=== PATIENT | female | born 1975 | race American Indian/Alaskan Native ===

== ENCOUNTER 2017-06-13 15:11 | Emergency (ER) | payer BC ==
--- NOTE | 2017-06-13 19:15 | Emergency Department Report ---
- General Chief complaint: Skin/Abscess/Foreign Body Stated complaint: LEFT LEG PAIN Time Seen by Provider: 06/13/17 19:10 Source: patient Mode of arrival: Ambulatory Limitations: No Limitations - History of Present Illness Initial comments: 42-year-old female past medical history presents with complaint of irritation to left lower extremity patient states she has a patch of red skin located behind her left upper calf region. Denies any fevers or chills. Denies any calf pain. States that area is slightly warm to touch. Patient is pointing towards area on her leg. There is a well-demarcated erythematous patch approximately 5-6 cm in width. Visible abscess head. Patient denies any direct trauma. States she is concerned she may have been bitten by an insect at either home or work. MD complaint: insect bite/sting, abscess/boil Onset/Timin -: days(s) Tetanus Up to Date: yes Location: LLE Severity: moderate Severity scale (0 -10): 3 Quality: aching Consistency: intermittent Context: none - Related Data Home Medications Medication Instructions Recorded Confirmed Last Taken Aspirin [Aspirin TAB] 81 mg PO ONCE 04/27/14 04/27/14 04/27/14 1 Carvedilol [Coreg] 25 mg PO BID 04/27/14 04/27/14 04/27/14 1 Previous Rx's Medication Instructions Recorded Last Taken Type HYDROcodone/APAP 7.5-325 [[place] 1 each PO Q6HR PRN #20 tablet 04/27/14 Unknown Rx 7.5-325 mg TAB] Methocarbamol [Robaxin] 750 mg PO Q8H PRN #21 tablet 04/27/14 Unknown Rx Cephalexin [Keflex] 500 mg PO Q12HR #14 cap 06/13/17 Unknown Rx Ibuprofen [Motrin] 800 mg PO Q8HR PRN #25 tablet 06/13/17 Unknown Rx Sulfamethoxazole/Trimethoprim 1 each PO BID #14 tablet 06/13/17 Unknown Rx [Bactrim DS TAB] Allergies Allergy/AdvReac Type Severity Reaction Status Date / Time No Known Allergies Allergy Verified 04/27/14 06:33 Abscess Boil HPI - HPI Chief Complaint: Skin/Abscess/Foreign Body Stated Complaint: LEFT LEG PAIN Time Seen by Provider: 06/13/17 19:10 Home Medications: Home Medications Medication Instructions Recorded Confirmed Last Taken Aspirin [Aspirin TAB] 81 mg PO ONCE 04/27/14 04/27/14 04/27/14 1 Carvedilol [Coreg] 25 mg PO BID 04/27/14 04/27/14 04/27/14 1 Previous Rx's Medication Instructions Recorded Last Taken Type HYDROcodone/APAP 7.5-325 [[place] 1 each PO Q6HR PRN #20 tablet 04/27/14 Unknown Rx 7.5-325 mg TAB] Methocarbamol [Robaxin] 750 mg PO Q8H PRN #21 tablet 04/27/14 Unknown Rx Cephalexin [Keflex] 500 mg PO Q12HR #14 cap 06/13/17 Unknown Rx Ibuprofen [Motrin] 800 mg PO Q8HR PRN #25 tablet 06/13/17 Unknown Rx Sulfamethoxazole/Trimethoprim 1 each PO BID #14 tablet 06/13/17 Unknown Rx [Bactrim DS TAB] Allergies/Adverse Reactions: Allergies Allergy/AdvReac Type Severity Reaction Status Date / Time No Known Allergies Allergy Verified 04/27/14 06:33 ED Review of Systems ROS: Stated complaint: LEFT LEG PAIN Other details as noted in HPI Constitutional: denies: chills, fever Eyes: denies: eye pain, eye discharge, vision change ENT: denies: ear pain, throat pain Respiratory: denies: cough, shortness of breath, wheezing Cardiovascular: denies: chest pain, palpitations Endocrine: no symptoms reported Gastrointestinal: denies: abdominal pain, nausea, diarrhea Genitourinary: denies: urgency, dysuria, discharge Musculoskeletal: denies: back pain, joint swelling, arthralgia Skin: denies: rash, lesions Neurological: denies: headache, weakness, paresthesias Psychiatric: denies: anxiety, depression Hematological/Lymphatic: denies: easy bleeding, easy bruising ED Past Medical Hx - Past Medical History Previous Medical History?: No Hx Hypertension: Yes Additional medical history: heart disease - Surgical History Additional Surgical History: heart by pass/ no stents - Social History Smoking Status: Never Smoker Substance Use Type: None - Medications Home Medications: Home Medications Medication Instructions Recorded Confirmed Last Taken Type Aspirin [Aspirin TAB] 81 mg PO ONCE 04/27/14 04/27/14 04/27/14 History 1 Carvedilol [Coreg] 25 mg PO BID 04/27/14 04/27/14 04/27/14 History 1 HYDROcodone/APAP 7.5-325 [[place] 1 each PO Q6HR PRN #20 tablet 04/27/14 Unknown Rx 7.5-325 mg TAB] Methocarbamol [Robaxin] 750 mg PO Q8H PRN #21 tablet 04/27/14 Unknown Rx Cephalexin [Keflex] 500 mg PO Q12HR #14 cap 06/13/17 Unknown Rx Ibuprofen [Motrin] 800 mg PO Q8HR PRN #25 tablet 06/13/17 Unknown Rx Sulfamethoxazole/Trimethoprim 1 each PO BID #14 tablet 06/13/17 Unknown Rx [Bactrim DS TAB] ED Physical Exam - General Limitations: No Limitations General appearance: alert, in no apparent distress - Head Head exam: Present: atraumatic, normocephalic - Eye Eye exam: Present: normal appearance, PERRL, EOMI - ENT ENT exam: Present: mucous membranes moist - Neck Neck exam: Present: normal inspection, full ROM - Respiratory Respiratory exam: Present: normal lung sounds bilaterally. Absent: respiratory distress - Cardiovascular Cardiovascular Exam: Present: regular rate, normal rhythm. Absent: systolic murmur, diastolic murmur, rubs, gallop - GI/Abdominal GI/Abdominal exam: Present: soft, normal bowel sounds - Extremities Exam Extremities exam: Present: normal inspection - Expanded Lower Extremity Exam Left Hip exam: Present: normal inspection, full ROM Upper Leg exam: Present: normal inspection, full ROM Knee exam: Present: normal inspection, full ROM Lower Leg exam: Present: erythema Ankle exam: Present: normal inspection, full ROM Foot/Toe exam: Present: normal inspection, full ROM Neuro vascular tendon exam: Present: no vascular compromise (distal dosralis pedis and posteriro tibial pulses) Gait: Positive: observed and normal 1 - patch of erthema w/ central abscess about 6-7cm in diameter - Back Exam Back exam: Present: normal inspection - Neurological Exam Neurological exam: Present: alert, oriented X3, CN II-XII intact, normal gait - Psychiatric Psychiatric exam: Present: normal affect, normal mood - Skin Skin exam: Present: warm, dry, intact, normal color. Absent: rash ED Course Vital Signs 06/13/17 06/13/17 15:29 19:50 Temperature 98.5 F Pulse Rate 118 H 60 Respiratory 16 20 Rate Blood Pressure 196/94 Blood Pressure 196/114 [Right] O2 Sat by Pulse 100 100 Oximetry - I & D Left Posterior Calf Type of Procedure: Simple Site: left upper calf region Blade Size: 11 I & D Procedure: betadine prep, sterile drapes applied, sterile dressing applied Progress: Area anesthetized with lidocaine, good anesthesia achieved, 1 stab incision made slight amount of purulent drainage, procedure tolerated well minimal bleeding area covered with gauze after ED Medical Decision Making - Medical Decision Making A/P: Left lower extremity cellulitis, hypertension 1-Bactrim and Keflex twice a day 7 days 2-Motrin when necessary 3- return the to ED if cellulitis runs past the marked borders 4- patient signed out AGAINST MEDICAL ADVICE. Patient's blood pressure was over 110 diastolic and nearly 200 systolic. Patient has no chest pain no headache no dizziness no nausea no vomiting no abdominal pain no blurry vision however her blood pressure is still significantly high despite use of her hypertension medicine. I advised patient that because of her elevation in blood pressure I would have to do basic labs give her an agent to try to reduce blood pressure slightly and observe her for some more time. Patient stated she could not wait any longer and had to leave. I explained to patient that she is at risk for heart attack stroke and permanent disability or without management of hypertension. Patient stated she understood these risks but still had to leave for personal reasons. Patient signed out AGAINST MEDICAL ADVICE, yarn texture machine operator Aljeandro Calvin witnessed AGAINST MEDICAL ADVICE form. Critical care attestation.: If time is entered above; I have spent that time in minutes in the direct care of this critically ill patient, excluding procedure time. ED Disposition Clinical Impression: Left leg cellulitis, Left against medical advice Hypertension Qualifiers: Hypertension type: unspecified Qualified Code(s): I10 - Essential (primary) hypertension Disposition: LEFT AGAINST MED ADVICE Is pt being admited?: No Does the pt Need Aspirin: No Condition: Stable Instructions: Cellulitis (ED), Abscess Incision and Drainage (ED), Abscess (ED) , Hypertension (ED), Against Medical Advice (ED) Prescriptions: Cephalexin [Keflex] 500 mg PO Q12HR #14 cap Ibuprofen [Motrin] 800 mg PO Q8HR PRN #25 tablet PRN Reason: Pain Sulfamethoxazole/Trimethoprim [Bactrim DS TAB] 1 each PO BID #14 tablet Referrals: RADHA KARIMI MD [Staff Physician] - 3-[address] [facility] [Outside] - 3-5 Days Forms: AMA Form, Work/School Release Form(ED) Time of Disposition: 19:20
[2017-06-13 20:52] VITALS: BP 196/114
== END 2017-06-13 19:55 | disposition left against medical advice (07) ==
LOC: ED 15:11
DX: L03.116 Cellulitis of left lower limb (principal); I10 Essential (primary) hypertension; Z79.82 Long term (current) use of aspirin
CPT/HCPCS: 99282

== ENCOUNTER 2019-05-31 10:48 | Emergency (ER) | payer BC ==
[2019-05-31 10:57] VITALS: BP 154/78
--- NOTE | 2019-05-31 11:36 | Emergency Department Report ---
ED ENT HPI - General Chief complaint: Upper Respiratory Infection Stated complaint: BACK ACHE/SORE THROAT/FEVER Time Seen by Provider: 05/31/19 11:31 Source: patient Mode of arrival: Ambulatory Limitations: No Limitations - History of Present Illness Initial comments: Mrs. Wood is a 44-year-old female who presents with fever chills body aches and sore throat for 2 days. [id number] symptoms. No nasal congestion no cough. No shortness of breath. There was a sick contact at work. MD complaint: sore throat -: Gradual, days(s) (2) Location: throat Severity: mild, moderate Quality: aching Consistency: constant Improves with: none Worsens with: none, swallowing Associated Symptoms: fever, pain with swallowing, sore throat - Related Data Home Medications Medication Instructions Recorded Confirmed Last Taken Aspirin 81 mg PO ONCE 04/27/14 04/27/14 04/27/14 1 Carvedilol [Coreg] 25 mg PO BID 04/27/14 04/27/14 04/27/14 1 Previous Rx's Medication Instructions Recorded Last Taken Type HYDROcodone/APAP 7.5-325 [[place] 1 each PO Q6HR PRN #20 tablet 04/27/14 Unknown Rx 7.5-325 mg TAB] methOCARBAMOL [Robaxin] 750 mg PO Q8H PRN #21 tablet 04/27/14 Unknown Rx Ibuprofen [Motrin] 800 mg PO Q8HR PRN #25 tablet 06/13/17 Unknown Rx Sulfamethoxazole/Trimethoprim 1 each PO BID #14 tablet 06/13/17 Unknown Rx [Bactrim DS TAB] cephALEXin [Keflex] 500 mg PO Q12HR #14 cap 06/13/17 Unknown Rx Ibuprofen [Motrin 800 MG tab] 800 mg PO Q8HR PRN #15 tablet 05/31/19 Unknown Rx Allergies Allergy/AdvReac Type Severity Reaction Status Date / Time No Known Allergies Allergy Verified 04/27/14 06:33 ED Dental HPI - General Chief complaint: Upper Respiratory Infection Stated complaint: BACK ACHE/SORE THROAT/FEVER Time Seen by Provider: 05/31/19 11:31 Source: patient Mode of arrival: Ambulatory Limitations: No Limitations - Related Data Home Medications Medication Instructions Recorded Confirmed Last Taken Aspirin 81 mg PO ONCE 04/27/14 04/27/14 04/27/14 1 Carvedilol [Coreg] 25 mg PO BID 04/27/14 04/27/14 04/27/14 1 Previous Rx's Medication Instructions Recorded Last Taken Type HYDROcodone/APAP 7.5-325 [[place] 1 each PO Q6HR PRN #20 tablet 04/27/14 Unknown Rx 7.5-325 mg TAB] methOCARBAMOL [Robaxin] 750 mg PO Q8H PRN #21 tablet 04/27/14 Unknown Rx Ibuprofen [Motrin] 800 mg PO Q8HR PRN #25 tablet 06/13/17 Unknown Rx Sulfamethoxazole/Trimethoprim 1 each PO BID #14 tablet 06/13/17 Unknown Rx [Bactrim DS TAB] cephALEXin [Keflex] 500 mg PO Q12HR #14 cap 06/13/17 Unknown Rx Ibuprofen [Motrin 800 MG tab] 800 mg PO Q8HR PRN #15 tablet 05/31/19 Unknown Rx Allergies Allergy/AdvReac Type Severity Reaction Status Date / Time No Known Allergies Allergy Verified 04/27/14 06:33 ED Review of Systems ROS: Stated complaint: BACK ACHE/SORE THROAT/FEVER Other details as noted in HPI Constitutional: fever, malaise ENT: throat pain Respiratory: denies: cough, shortness of breath Cardiovascular: denies: chest pain Gastrointestinal: denies: abdominal pain, nausea, vomiting ED Past Medical Hx - Past Medical History Hx Hypertension: Yes Additional medical history: heart disease - Surgical History Additional Surgical History: heart by pass/ no stents - Social History Smoking Status: Current Some Day Smoker Substance Use Type: None - Medications Home Medications: Home Medications Medication Instructions Recorded Confirmed Last Taken Type Aspirin 81 mg PO ONCE 04/27/14 04/27/14 04/27/14 History 1 Carvedilol [Coreg] 25 mg PO BID 04/27/14 04/27/14 04/27/14 History 1 HYDROcodone/APAP 7.5-325 [[place] 1 each PO Q6HR PRN #20 tablet 04/27/14 Unknown Rx 7.5-325 mg TAB] methOCARBAMOL [Robaxin] 750 mg PO Q8H PRN #21 tablet 04/27/14 Unknown Rx Ibuprofen [Motrin] 800 mg PO Q8HR PRN #25 tablet 06/13/17 Unknown Rx Sulfamethoxazole/Trimethoprim 1 each PO BID #14 tablet 06/13/17 Unknown Rx [Bactrim DS TAB] cephALEXin [Keflex] 500 mg PO Q12HR #14 cap 06/13/17 Unknown Rx Ibuprofen [Motrin 800 MG tab] 800 mg PO Q8HR PRN #15 tablet 05/31/19 Unknown Rx ED Physical Exam - General Limitations: No Limitations General appearance: alert, in no apparent distress, other (normal voice) - Eye Eye exam: Absent: scleral icterus, conjunctival injection - ENT ENT exam: Present: mucous membranes moist, other (exudative pharyngitis erythematous tonsils bilaterally) - Neck Neck exam: Present: normal inspection, full ROM - Respiratory Respiratory exam: Present: normal lung sounds bilaterally. Absent: respiratory distress, wheezes, rales, rhonchi - Neurological Exam Neurological exam: Present: alert, oriented X3 - Psychiatric Psychiatric exam: Present: normal affect, normal mood - Skin Skin exam: Present: warm, dry, intact, normal color ED Course Vital Signs 05/31/19 10:55 Temperature 100.0 F H Pulse Rate 72 Respiratory 18 Rate Blood Pressure 154/78 O2 Sat by Pulse 99 Oximetry ED Medical Decision Making - Medical Decision Making Mrs. Wood will be treated for streptococcal pharyngitis. dx'd by [facility] criteria Given Bicillin and Decadron as well as ibuprofen in the emergency department prescribed ibuprofen Critical care attestation.: If time is entered above; I have spent that time in minutes in the direct care of this critically ill patient, excluding procedure time. ED Disposition Clinical Impression: Streptococcal pharyngitis Disposition: DC-01 TO HOME OR SELFCARE Is pt being admited?: No Does the pt Need Aspirin: No Condition: Stable Instructions: Strep Throat (ED) Prescriptions: Ibuprofen [Motrin 800 MG tab] 800 mg PO Q8HR PRN #15 tablet PRN Reason: Pain , Severe (7-10) Forms: Work/School Release Form(ED)
[2019-05-31] MEDS ORDERED: IBUPROFEN PO ONE (11:37)
[2019-05-31] MEDS ORDERED: BICILLIN L-A IM ONE (11:37)
[2019-05-31] MEDS ORDERED: DECADRON IM ONE (11:37)
== END 2019-05-31 11:56 | disposition home or self-care (01) ==
LOC: ED 10:48
DX: J02.0 Streptococcal pharyngitis (principal); I10 Essential (primary) hypertension; F17.200 Nicotine dependence, unspecified, uncomplicated; Z79.82 Long term (current) use of aspirin; Z79.899 Other long term (current) drug therapy
CPT/HCPCS: 96372; 99282; J0561; J1100

== ENCOUNTER 2019-09-29 07:51 | Emergency (ER) | payer SELFPAY ==
[2019-09-29 07:57] VITALS: BP 127/67
--- NOTE | 2019-09-29 08:32 | Emergency Department Report ---
HPI - General Chief Complaint: Sore Throat Time Seen by Provider: 09/29/19 08:22 - HPI HPI: Room 42 The patient is a 44-year-old female presenting with chief complaint of sore throat. The patient states for the past 2 days she's had a sore throat and c [place]. Patient was so subjective fever. Patient also noticed her cough is nonproductive. The patient gives her pain score of 8/10. The patient states her daughter was diagnosed with strep throat last week. ED Past Medical Hx - Past Medical History Previous Medical History?: Yes Hx Hypertension: Yes Additional medical history: Coronary artery disease - Surgical History Past Surgical History?: Yes Hx Open Heart Surgery: Yes (CABG 2012) Additional Surgical History: heart by pass/ no stents - Family History Family history: no significant - Social History Smoking Status: Never Smoker Substance Use Type: None (denies illicit drug use) - Medications Home Medications: Home Medications Medication Instructions Recorded Confirmed Last Taken Type Aspirin 81 mg PO ONCE 04/27/14 04/27/14 04/27/14 History 1 HYDROcodone/APAP 7.5-325 [[place] 1 each PO Q6HR PRN #20 tablet 04/27/14 Unknown Rx 7.5-325 mg TAB] carvediloL [Coreg] 25 mg PO BID 04/27/14 04/27/14 04/27/14 History 1 methOCARBAMOL [Robaxin] 750 mg PO Q8H PRN #21 tablet 04/27/14 Unknown Rx Ibuprofen [Motrin] 800 mg PO Q8HR PRN #25 tablet 06/13/17 Unknown Rx Sulfamethoxazole/Trimethoprim 1 each PO BID #14 tablet 06/13/17 Unknown Rx [Bactrim DS TAB] cephALEXin [Keflex] 500 mg PO Q12HR #14 cap 06/13/17 Unknown Rx Ibuprofen [Motrin 800 MG tab] 800 mg PO Q8HR PRN #15 tablet 05/31/19 Unknown Rx Amoxicillin [Amoxicillin TAB] 875 mg PO BID #20 tablet 09/29/19 Unknown Rx HYDROcodone/APAP 5-325 [[place] 1 - 2 each PO Q6HR PRN #10 tablet 09/29/19 Unknown Rx 5/325] Ibuprofen [Motrin 800 MG tab] 800 mg PO Q8HR PRN #20 tablet 09/29/19 Unknown Rx ED Review of Systems ROS: Stated complaint: FEVER/SORE THROAT Other details as noted in HPI Constitutional: denies: fever Eyes: denies: eye pain ENT: throat pain Respiratory: cough Cardiovascular: denies: chest pain Endocrine: no symptoms reported Gastrointestinal: denies: abdominal pain Musculoskeletal: denies: back pain Skin: denies: rash Neurological: denies: headache Physical Exam - Physical Exam Vital Signs: Vital Signs 09/29/19 07:54 Temperature 99.2 F Pulse Rate 73 Respiratory 18 Rate Blood Pressure 127/67 O2 Sat by Pulse 98 Oximetry Physical Exam: GENERAL: The patient is well-developed well-nourished female sitting in chair not appearing to be in acute distress HEENT: Normocephalic. Atraumatic. Extraocular motions are intact. 2+ tonsils bilaterally. Faint exudate seen on the right tonsil. NECK: Supple. No meningitic signs are noted. Trachea midline. There is no stridor CHEST/LUNGS: Clear to auscultation. There is no respiratory distress noted. HEART/CARDIOVASCULAR: Regular. There is no tachycardia. There is no gallop rub or murmur. SKIN: There is no rash. There is no edema. There is no diaphoresis. NEURO: The patient is awake, alert, and oriented. The patient is cooperative. The patient has normal speech MUSCULOSKELETAL: There is no evidence of acute injury. ED Course Vital Signs 09/29/19 07:54 Temperature 99.2 F Pulse Rate 73 Respiratory 18 Rate Blood Pressure 127/67 O2 Sat by Pulse 98 Oximetry ED Medical Decision Making - Differential Diagnosis pharyngitis Critical care attestation.: If time is entered above; I have spent that time in minutes in the direct care of this critically ill patient, excluding procedure time. ED Disposition Clinical Impression: Acute pharyngitis Disposition: DC-01 TO HOME OR SELFCARE Is pt being admited?: No Does the pt Need Aspirin: No Condition: Stable Instructions: Strep Throat (ED) Prescriptions: Amoxicillin [Amoxicillin TAB] 875 mg PO BID #20 tablet Ibuprofen [Motrin 800 MG tab] 800 mg PO Q8HR PRN #20 tablet PRN Reason: Pain, Moderate (4-6) HYDROcodone/APAP 5-325 [[place] 5/325] 1 - 2 each PO Q6HR PRN #10 tablet PRN Reason: Pain Referrals: CHASIDY MORLEY MD [Staff Physician] - 3-5 Days Time of Disposition: 08:34
== END 2019-09-29 08:53 | disposition home or self-care (01) ==
LOC: ED 07:51
DX: J02.9 Acute pharyngitis, unspecified (principal); I10 Essential (primary) hypertension
CPT/HCPCS: 99282

== ENCOUNTER 2020-05-08 08:58 | Emergency (ER) | payer OTHER ==
[2020-05-08] MEDS ORDERED: predniSONE 20 MG TAB PO ONE (10:23)
[2020-05-08] MEDS ORDERED: KETOROLAC 60 MG/2 ML INJ IM ONE (10:23)
--- NOTE | 2020-05-08 12:01 | Emergency Department Report ---
ED Back Pain/Injury HPI - General Chief Complaint: Back Pain/Injury Stated Complaint: BACK PAIN Time Seen by Provider: 05/08/20 10:22 Source: patient Limitations: No Limitations - History of Present Illness Initial Comments: This is a 45-year-old female nontoxic, well nourished in appearance, no acute signs of distress presents to the ED with c/o of lower back pain. Patient st ated that on 03 of May has been heavy lifting and developed pain. Patient denies any radiation of pain. Patient denies any trauma. Denies any bladder or bowel instability. Patient denies any urinary symptoms. Denies any fever, chills, nausea, vomiting, headache, stiff neck, chest pain or shortness of breath. Patient denies any numbness or tingling. Denies any allergies. Denies significant past medical history. MD Complaint: back pain -: days(s) Radiation: none Severity: mild Severity scale (0 -10): 8 Quality: aching Consistency: intermittent Improves With: immobilization, sitting upright Worsens With: movement, walking Context: while lifting, turning/twisting Associated Symptoms: denies other symptoms. denies: confusion, weakness, chest pain, numbness, difficulty walking, cough, difficulty urinating, diaphoresis, incontinence, fever/chills, constipation, headaches, abdominal pain, loss of appetite, malaise, nausea/vomiting, rash, seizure, shortness of breath, syncope - Related Data Home Medications Medication Instructions Recorded Confirmed Last Taken Aspirin 81 mg PO ONCE 04/27/14 04/27/14 04/27/14 1 carvediloL [Coreg] 25 mg PO BID 04/27/14 04/27/14 04/27/14 1 Previous Rx's Medication Instructions Recorded Last Taken Type HYDROcodone/APAP 7.5-325 [[place] 1 each PO Q6HR PRN #20 tablet 04/27/14 Unknown Rx 7.5-325 mg TAB] methOCARBAMOL [Robaxin] 750 mg PO Q8H PRN #21 tablet 04/27/14 Unknown Rx Ibuprofen [Motrin] 800 mg PO Q8HR PRN #25 tablet 06/13/17 Unknown Rx Sulfamethoxazole/Trimethoprim 1 each PO BID #14 tablet 06/13/17 Unknown Rx [Bactrim DS TAB] cephALEXin [Keflex] 500 mg PO Q12HR #14 cap 06/13/17 Unknown Rx Ibuprofen [Motrin 800 MG tab] 800 mg PO Q8HR PRN #15 tablet 05/31/19 Unknown Rx Amoxicillin [Amoxicillin TAB] 875 mg PO BID #20 tablet 09/29/19 Unknown Rx HYDROcodone/APAP 5-325 [[place] 1 - 2 each PO Q6HR PRN #10 tablet 09/29/19 Unknown Rx 5/325] Ibuprofen [Motrin 800 MG tab] 800 mg PO Q8HR PRN #20 tablet 09/29/19 Unknown Rx Cyclobenzaprine [Flexeril] 10 mg PO QHS PRN #10 tablet 05/08/20 Unknown Rx Naproxen 500 mg PO Q12H PRN #12 tablet 05/08/20 Unknown Rx cephALEXin [Keflex] 500 mg PO Q8HR #21 cap 05/08/20 Unknown Rx Allergies Allergy/AdvReac Type Severity Reaction Status Date / Time No Known Allergies Allergy Verified 04/27/14 06:33 ED Review of Systems ROS: Stated complaint: BACK PAIN Other details as noted in HPI Constitutional: denies: chills, fever Eyes: denies: eye pain, eye discharge, vision change ENT: denies: ear pain, throat pain Respiratory: denies: cough, shortness of breath, wheezing Cardiovascular: denies: chest pain, palpitations Endocrine: no symptoms reported Gastrointestinal: denies: abdominal pain, nausea, diarrhea Genitourinary: denies: urgency, dysuria, discharge Musculoskeletal: back pain. denies: joint swelling, arthralgia Skin: denies: rash, lesions Neurological: denies: headache, weakness, paresthesias Psychiatric: denies: anxiety, depression Hematological/Lymphatic: denies: easy bleeding, easy bruising ED Past Medical Hx - Past Medical History Previous Medical History?: Yes Hx Hypertension: Yes Hx Congestive Heart Failure: Yes Additional medical history: heart disease - Surgical History Past Surgical History?: Yes Hx Open Heart Surgery: Yes (CABG 2012) Additional Surgical History: heart by pass/ no stents - Social History Smoking Status: Never Smoker Substance Use Type: None - Medications Home Medications: Home Medications Medication Instructions Recorded Confirmed Last Taken Type Aspirin 81 mg PO ONCE 04/27/14 04/27/14 04/27/14 History 1 HYDROcodone/APAP 7.5-325 [[place] 1 each PO Q6HR PRN #20 tablet 04/27/14 Unknown Rx 7.5-325 mg TAB] carvediloL [Coreg] 25 mg PO BID 04/27/14 04/27/14 04/27/14 History 1 methOCARBAMOL [Robaxin] 750 mg PO Q8H PRN #21 tablet 04/27/14 Unknown Rx Ibuprofen [Motrin] 800 mg PO Q8HR PRN #25 tablet 06/13/17 Unknown Rx Sulfamethoxazole/Trimethoprim 1 each PO BID #14 tablet 06/13/17 Unknown Rx [Bactrim DS TAB] cephALEXin [Keflex] 500 mg PO Q12HR #14 cap 06/13/17 Unknown Rx Ibuprofen [Motrin 800 MG tab] 800 mg PO Q8HR PRN #15 tablet 05/31/19 Unknown Rx Amoxicillin [Amoxicillin TAB] 875 mg PO BID #20 tablet 09/29/19 Unknown Rx HYDROcodone/APAP 5-325 [[place] 1 - 2 each PO Q6HR PRN #10 tablet 09/29/19 Unknown Rx 5/325] Ibuprofen [Motrin 800 MG tab] 800 mg PO Q8HR PRN #20 tablet 09/29/19 Unknown Rx Cyclobenzaprine [Flexeril] 10 mg PO QHS PRN #10 tablet 05/08/20 Unknown Rx Naproxen 500 mg PO Q12H PRN #12 tablet 05/08/20 Unknown Rx cephALEXin [Keflex] 500 mg PO Q8HR #21 cap 05/08/20 Unknown Rx ED Physical Exam - General Limitations: No Limitations General appearance: alert, in no apparent distress - Head Head exam: Present: atraumatic, normocephalic - Eye Eye exam: Present: normal appearance - Neck Neck exam: Present: normal inspection, full ROM. Absent: tenderness, meningismus, lymphadenopathy - GI/Abdominal GI/Abdominal exam: Present: soft, normal bowel sounds. Absent: distended, tenderness, guarding, rebound, rigid, diminished bowel sounds - Extremities Exam Extremities exam: Present: normal inspection, full ROM, normal capillary refill. Absent: tenderness - Back Exam Back exam: Present: normal inspection, full ROM, paraspinal tenderness (lumbar paraspinal). Absent: tenderness, CVA tenderness (R), CVA tenderness (L), muscle spasm, vertebral tenderness, rash noted - Expanded Back Exam Expanded Back exam: Absent: saddle anesthesia Back exam: Negative Straight Leg Raising: Left, Right - Neurological Exam Neurological exam: Present: alert, oriented X3, normal gait - Psychiatric Psychiatric exam: Present: normal affect, normal mood - Skin Skin exam: Present: warm, dry, intact, normal color. Absent: rash ED Course Vital Signs 05/08/20 05/08/20 05/08/20 09:01 10:31 11:01 Temperature 98.3 F Pulse Rate 59 L Respiratory 18 16 18 Rate Blood Pressure 143/75 O2 Sat by Pulse 99 Oximetry - Reevaluation(s) Reevaluation #1: 05/08/20 12:01 Patient is speaking in full sentences with no signs of distress noted. ED Medical Decision Making - Lab Data Lab Results 05/08/20 Range/Units 11:24 Urine Color Yellow (Yellow) Urine Turbidity Cloudy (Clear) Urine pH 5.0 (5.0-7.0) Ur Specific Rea 1.023 (1.003-1.030) Urine Protein 30 mg/dl (Negative) mg/dL Urine Glucose (UA) Neg (Negative) mg/dL Urine Ketones Neg (Negative) mg/dL Urine Blood Neg (Negative) Urine Nitrite Neg (Negative) Ur Reducing Substances Not Reportable Urine Bilirubin Neg (Negative) Urine Ictotest Not Reportable Urine Urobilinogen < 2.0 (<2.0) mg/dL Ur Leukocyte Esterase Sm (Negative) Urine WBC (Auto) 13.0 H (0.0-6.0) /HPF Urine RBC (Auto) 4.0 (0.0-6.0) /HPF U Epithel Cells (Auto) 92.0 H (0-13.0) /HPF Urine Bacteria (Auto) 1+ (Negative) /HPF Urine Mucus 3+ /HPF Urine HCG, Qual Negative (Negative) - Radiology Data Referring Physician: TASHI CRANE Patient Name: RACIEL MOY Date of : 1975 Sex: Female Report Date: 2020-05-08 Report Status: Finalized [facility] [address] [place] [address] XRay Report Signed Patient: RACIEL MOY MR#: [id number] : 1975 Acct:[id number] Age/Sex: 45 / F ADM Date: 05/08/20 Loc: ED Attending Dr: Ordering Physician: TASHI CRANE NP Date of Service: 05/08/20 Procedure(s): XR spine lumbosacral 2-3V Accession Number(s): [id number] cc: TASHI CRANE NP Fluoro Time In Minutes: LUMBAR SPINE 3 VIEWS INDICATION / CLINICAL INFORMATION: low back pain. COMPARISON: None available. FINDINGS: Mild degenerative change at L3-4. No other significant skeletal abnormality. Alignment is normal. Signer Name: Tashi Parikh MD FACR Signed: 05/08/2020 12:45 PM Workstation Name: [id number] Transcribed By: MS Dictated By: Tashi Parikh MD Electronically Authenticated By: Tashi Parikh MD Signed Date/Time: 05/08/20 1245 DD/ 1244 TD/TT: - Medical Decision Making This is a 45-year-old female that presents with UTI and low back strain. Patient is stable was examined by me. There is no cauda equina syndrome during examination. No bladder or bowel instability. Patient received Toradol 60 mg IM and prednisone in the ED which stated that her symptoms has resolved and subsided. Patient is discharged with muscle relaxant and Motrin. Patient was instructed not to operate any machinery while taking muscle relaxant as they cause her drowsiness. Patient was referred to Follow-up with a primary care doctor in 3-5 days or if symptoms worsen and continue return to emergency room as soon as possible. At time of discharge, the patient does not seem toxic or ill in appearance. No acute signs of distress noted. Patient agrees to discharge treatment plan of care. No further questions noted by the patient. This chart is dictated with using [employer] Dictation Program Critical care attestation.: If time is entered above; I have spent that time in minutes in the direct care of this critically ill patient, excluding procedure time. ED Disposition Clinical Impression: UTI (urinary tract infection) Qualifiers: Urinary tract infection type: acute cystitis Hematuria presence: without hematuria Qualified Code(s): N30.00 - Acute cystitis without hematuria Low back strain Qualifiers: Encounter type: initial encounter Qualified Code(s): S39.012A - Strain of muscle, fascia and tendon of lower back, initial encounter Disposition: TO HOME OR SELFCARE Is pt being admited?: No Does the pt Need Aspirin: No Condition: Stable Instructions: Low Back Strain (ED), Cyclobenzaprine (By mouth), Urinary Tract Infection in Women (ED) Additional Instructions: Follow-up with your primary care doctor in 3-5 days or if symptoms worsen such as bladder or bowel stability, chest pain, short of breath, numbness or tingling sensation in extremities, headache, dizziness, visual changes, nausea vomiting, or abdominal pain, return back to emergency room as was possible. Take naproxen and Flexeril as prescribed. Do not operate heavy machinery while taking Flexeril due to sedation Prescriptions: Cyclobenzaprine [Flexeril] 10 mg PO QHS PRN #10 tablet PRN Reason: Muscle Spasm cephALEXin [Keflex] 500 mg PO Q8HR #21 cap Naproxen 500 mg PO Q12H PRN #12 tablet PRN Reason: Pain , Severe (7-10) Referrals: PRIMARY MD MALICK [Primary Care Provider] - 3-5 Days VLADIMIR MCFADDEN MD [Staff Physician] - 3-5 Days [facility] [Provider Group] - 3-5 Days Forms: Work/School Release Form(ED)
[2020-05-08 12:17] LABS: HCG Qualitative,Urine Negative (Negative)
[2020-05-08 12:27] LABS: Bacteria,Urine 1+ /HPF (Negative); Mucus,Urine 3+ /HPF
[2020-05-08 12:41] LABS: Bilirubin,Urine NEG (Negative); Blood,Urine NEG (Negative); Color,Urine Yellow (Yellow); Urobilinogen,Urine < 2.0 mg/dL (<2.0)
--- NOTE | 2020-05-08 12:49 | XRay Report ---
LUMBAR SPINE 3 VIEWS INDICATION / CLINICAL INFORMATION: low back pain. COMPARISON: None available. FINDINGS: Mild degenerative change at L3-4. No other significant skeletal abnormality. Alignment is normal. Signer Name: Tashi Parikh MD FACR Signed: 05/08/2020 12:45 PM Workstation Name: [id number]
[2020-05-08 13:06] VITALS: BP 155/83
--- NOTE | 2020-05-08 19:23 | History and Physical Report ---
History of Present Illness History of present illness: - General Chief Complaint: Back Pain/Injury Stated Complaint: BACK PAIN Time Seen by Provider: 05/08/20 10:22 Source: patient Limitations: No Limitations - History of Present Illness Initial Comments: This is a 45-year-old female nontoxic, well nourished in appearance, no acute signs of distress presents to the ED with c/o of lower back pain. Patient stated that on 03 of May has been heavy lifting and developed pain. Patient denies any radiation of pain. Patient denies any trauma. Denies any bladder or bowel instability. Patient denies any urinary symptoms. Denies any fever, chills, nausea, vomiting, headache, stiff neck, chest pain or shortness of breath. Patient denies any numbness or tingling. Denies any allergies. Denies significant past medical history. MD Complaint: back pain -: days(s) Radiation: none Severity: mild Severity scale (0 -10): 8 Quality: aching Consistency: intermittent Improves With: immobilization, sitting upright Worsens With: movement, walking Context: while lifting, turning/twisting Associated Symptoms: denies other symptoms. denies: confusion, weakness, chest pain, numbness, difficulty walking, cough, difficulty urinating, diaphoresis, incontinence, fever/chills, constipation, headaches, abdominal pain, loss of appetite, malaise, nausea/vomiting, rash, seizure, shortness of breath, syncope - Related Data Home Medications Medication Instructions Recorded Confirmed Last Taken Aspirin 81 mg PO ONCE 04/27/14 04/27/14 04/27/14 1 carvediloL [Coreg] 25 mg PO BID 04/27/14 04/27/14 04/27/14 1 Previous Rx's Medication Instructions Recorded Last Taken Type HYDROcodone/APAP 7.5-325 [[place] 1 each PO Q6HR PRN #20 tablet 04/27/14 Unknown Rx 7.5-325 mg TAB] methOCARBAMOL [Robaxin] 750 mg PO Q8H PRN #21 tablet 04/27/14 Unknown Rx Ibuprofen [Motrin] 800 mg PO Q8HR PRN #25 tablet 06/13/17 Unknown Rx Sulfamethoxazole/Trimethoprim 1 each PO BID #14 tablet 06/13/17 Unknown Rx [Bactrim DS TAB] cephALEXin [Keflex] 500 mg PO Q12HR #14 cap 06/13/17 Unknown Rx Ibuprofen [Motrin 800 MG tab] 800 mg PO Q8HR PRN #15 tablet 05/31/19 Unknown Rx Amoxicillin [Amoxicillin TAB] 875 mg PO BID #20 tablet 09/29/19 Unknown Rx HYDROcodone/APAP 5-325 [[place] 1 - 2 each PO Q6HR PRN #10 tablet 09/29/19 Unknown Rx 5/325] Ibuprofen [Motrin 800 MG tab] 800 mg PO Q8HR PRN #20 tablet 09/29/19 Unknown Rx Cyclobenzaprine [Flexeril] 10 mg PO QHS PRN #10 tablet 05/08/20 Unknown Rx Naproxen 500 mg PO Q12H PRN #12 tablet 05/08/20 Unknown Rx cephALEXin [Keflex] 500 mg PO Q8HR #21 cap 05/08/20 Unknown Rx Allergies Allergy/AdvReac Type Severity Reaction Status Date / Time No Known Allergies Allergy Verified 04/27/14 06:33 ED Review of Systems ROS: Stated complaint: BACK PAIN Other details as noted in HPI Constitutional: denies: chills, fever Eyes: denies: eye pain, eye discharge, vision change ENT: denies: ear pain, throat pain Respiratory: denies: cough, shortness of breath, wheezing Cardiovascular: denies: chest pain, palpitations Endocrine: no symptoms reported Gastrointestinal: denies: abdominal pain, nausea, diarrhea Genitourinary: denies: urgency, dysuria, discharge Musculoskeletal: back pain. denies: joint swelling, arthralgia Skin: denies: rash, lesions Neurological: denies: headache, weakness, paresthesias Psychiatric: denies: anxiety, depression Hematological/Lymphatic: denies: easy bleeding, easy bruising ED Past Medical Hx - Past Medical History Previous Medical History?: Yes Hx Hypertension: Yes Hx Congestive Heart Failure: Yes Additional medical history: heart disease - Surgical History Past Surgical History?: Yes Hx Open Heart Surgery: Yes (CABG 2012) Additional Surgical History: heart by pass/ no stents - Social History Smoking Status: Never Smoker Substance Use Type: None - Medications Home Medications: Medications and Allergies Allergies Allergy/AdvReac Type Severity Reaction Status Date / Time No Known Allergies Allergy Verified 04/27/14 06:33 Home Medications Medication Instructions Recorded Confirmed Last Taken Type Aspirin 81 mg PO ONCE 04/27/14 04/27/14 04/27/14 History 1 HYDROcodone/APAP 7.5-325 [[place] 1 each PO Q6HR PRN #20 tablet 04/27/14 Unknown Rx 7.5-325 mg TAB] carvediloL [Coreg] 25 mg PO BID 04/27/14 04/27/14 04/27/14 History 1 methOCARBAMOL [Robaxin] 750 mg PO Q8H PRN #21 tablet 04/27/14 Unknown Rx Ibuprofen [Motrin] 800 mg PO Q8HR PRN #25 tablet 06/13/17 Unknown Rx Sulfamethoxazole/Trimethoprim 1 each PO BID #14 tablet 06/13/17 Unknown Rx [Bactrim DS TAB] cephALEXin [Keflex] 500 mg PO Q12HR #14 cap 06/13/17 Unknown Rx Ibuprofen [Motrin 800 MG tab] 800 mg PO Q8HR PRN #15 tablet 05/31/19 Unknown Rx Amoxicillin [Amoxicillin TAB] 875 mg PO BID #20 tablet 09/29/19 Unknown Rx HYDROcodone/APAP 5-325 [[place] 1 - 2 each PO Q6HR PRN #10 tablet 09/29/19 Unknown Rx 5/325] Ibuprofen [Motrin 800 MG tab] 800 mg PO Q8HR PRN #20 tablet 09/29/19 Unknown Rx Cyclobenzaprine [Flexeril] 10 mg PO QHS PRN #10 tablet 05/08/20 Unknown Rx Naproxen 500 mg PO Q12H PRN #12 tablet 05/08/20 Unknown Rx cephALEXin [Keflex] 500 mg PO Q8HR #21 cap 05/08/20 Unknown Rx Exam - Constitutional Vitals: Temp Pulse Resp BP Pulse Ox 98.3 F 59 L 16 155/83 98 05/08/20 09:01 05/08/20 13:06 05/08/20 13:06 05/08/20 13:06 05/08/20 13:06 Results - Labs Labs: Abnormal lab results 05/08/20 Range/Units 11:24 Urine WBC (Auto) 13.0 H (0.0-6.0) /HPF U Epithel Cells (Auto) 92.0 H (0-13.0) /HPF
== END 2020-05-08 13:07 | disposition home or self-care (01) ==
LOC: ED 08:58
DX: S39.012A Strain of muscle, fascia and tendon of lower back, initial encounter (principal); N39.0 Urinary tract infection, site not specified; I11.0 Hypertensive heart disease with heart failure; I50.9 Heart failure, unspecified; Z79.82 Long term (current) use of aspirin; Z79.899 Other long term (current) drug therapy; X50.0XXA Overexertion from strenuous movement or load, initial encounter; Y93.89 Activity, other specified; Y92.89 Other specified places as the place of occurrence of the external cause; Y99.8 Other external cause status
CPT/HCPCS: 72100; 81001; 81025; 87086; 96372; 99283; J1885; J7512

== ENCOUNTER 2021-07-13 19:53 | Emergency (ER) | payer OTHER | END 2021-07-13 22:50 | disposition left against medical advice (07) | LOC: ED 19:53 | DX: S43.005A Unspecified dislocation of left shoulder joint, initial encounter (principal); Z53.21 Procedure and treatment not carried out due to patient leaving prior to being seen by health care provider; X58.XXXA Exposure to other specified factors, initial encounter; Y93.89 Activity, other specified; Y92.89 Other specified places as the place of occurrence of the external cause; Y99.8 Other external cause status ==

== ENCOUNTER 2021-07-14 08:55 | Emergency (ER) | payer OTHER ==
--- NOTE | 2021-07-14 10:41 | Emergency Department Report ---
Upper Extremity - HPI Chief Complaint: Extremity Injury, Upper Stated Complaint: LEFT SHOULDER PAIN Time Seen by Provider: 07/14/21 10:13 Upper Extremity: Left Shoulder Occurred When: >5 Days Mechanism: Unsure Severity: moderate Symptoms: Yes Pain with Movement, Yes Limited Range of Movement ED Review of Systems ROS: Stated complaint: LEFT SHOULDER PAIN Other details as noted in HPI Constitutional: denies: chills, fever Respiratory: denies: cough, shortness of breath, wheezing Cardiovascular: denies: chest pain, palpitations Musculoskeletal: arthralgia (Left shoulder) Skin: denies: rash, lesions Neurological: denies: headache, weakness, paresthesias Psychiatric: denies: anxiety, depression ED Past Medical Hx - Past Medical History Previous Medical History?: Yes Hx Hypertension: Yes Hx Congestive Heart Failure: Yes Additional medical history: heart disease - Surgical History Past Surgical History?: Yes Hx Open Heart Surgery: Yes (CABG 2012) Additional Surgical History: heart by pass/ no stents - Social History Smoking Status: Never Smoker Substance Use Type: None - Medications Home Medications: Home Medications Medication Instructions Recorded Confirmed Last Taken Type Aspirin 81 mg PO ONCE 04/27/14 04/27/14 04/27/14 History 1 HYDROcodone/APAP 7.5-325 [[place] 1 each PO Q6HR PRN #20 tablet 04/27/14 Unknown Rx 7.5-325 mg TAB] carvediloL [Coreg] 25 mg PO BID 04/27/14 04/27/14 04/27/14 History 1 methOCARBAMOL [Robaxin] 750 mg PO Q8H PRN #21 tablet 04/27/14 Unknown Rx Ibuprofen [Motrin] 800 mg PO Q8HR PRN #25 tablet 06/13/17 Unknown Rx Sulfamethoxazole/Trimethoprim 1 each PO BID #14 tablet 06/13/17 Unknown Rx [Bactrim DS TAB] cephALEXin [Keflex] 500 mg PO Q12HR #14 cap 06/13/17 Unknown Rx Ibuprofen [Motrin 800 MG tab] 800 mg PO Q8HR PRN #15 tablet 05/31/19 Unknown Rx Amoxicillin [Amoxicillin TAB] 875 mg PO BID #20 tablet 09/29/19 Unknown Rx HYDROcodone/APAP 5-325 [[place] 1 - 2 each PO Q6HR PRN #10 tablet 09/29/19 Unknown Rx 5/325] Ibuprofen [Motrin 800 MG tab] 800 mg PO Q8HR PRN #20 tablet 09/29/19 Unknown Rx Cyclobenzaprine [Flexeril] 10 mg PO QHS PRN #10 tablet 05/08/20 Unknown Rx Naproxen 500 mg PO Q12H PRN #12 tablet 05/08/20 Unknown Rx cephALEXin [Keflex] 500 mg PO Q8HR #21 cap 05/08/20 Unknown Rx Ibuprofen [Motrin 800 MG tab] 800 mg PO Q8HR PRN #20 tablet 07/14/21 Unknown Rx Upper Extremity Exam - Exam General: Vital signs noted. No distress. Alert and acting appropriately. Head and Torso: No HEENT Abnormality, No Neck Tenderness, No Chest/Lungs Abnormality, No Abdominal Tenderness, No Back Tenderness Shoulder Exam: Yes Normal Range of Motion in Shoulder, Yes AC Joint Tenderness (left), No Shoulder Tenderness, No Clavicle Tenderness, No Shoulder Deformity Arm Exam: No Arm/Humerus Tenderness, No Arm Deformity Elbow: No Elbow Tenderness, No Normal Range of Motion in Elbow, No Elbow Deformity Forearm: No Forearm Tenderness, No Forearm Deformity, No Pain with Pronation, No Pain with Supination Wrist: Yes Normal ROM in Wrist, No Wrist Tenderness, No Wrist Deformity, No Snuffbox Tenderness, No Pain with Axial Thumb Compression Hand: Yes Normal ROM in Digit(s), No Hand Tenderness, No Hand Deformity, No Digit Tenderness, No Digit(s) Deformity, No Tendon Dysfunction CMS Exam: No Broken Skin, No Normal Distal Pulses, No Normal Capillary Refill, No Normal Distal Sensation ED Course Vital Signs 07/14/21 09:48 Temperature 98.8 F Pulse Rate 54 L Respiratory 16 Rate Blood Pressure 125/60 [Left] O2 Sat by Pulse 100 Oximetry ED Medical Decision Making - Radiology Data Radiology results: report reviewed LEFT SHOULDER HISTORY: Pain. COMPARISON: None. TECHNIQUE: 3 view(s) of the left shoulder obtained. FINDINGS Bones: No fracture or dislocation. Joint spaces: Mild acromioclavicular arthropathy with spurring along the superior aspect of the clavicle. Mild glenohumeral osteoarthritic change.. Soft tissues: No significant abnormality. Additional findings: Surgical changes along the left mediastinal border. IMPRESSION: Left shoulder without evidence of acute osseous injury. Mild osteoarthritic changes at the left glenohumeral and acromioclavicular joints with mild spurring along superior aspect of the distal clavicle. Signer Name: Joe Ramos MD Signed: 07/14/2021 11:05 AM Workstation Name: [id number] - Medical Decision Making 46-year-old female complaining of right shoulder pain. Patient was examined by me. Patient is nontoxic appearing and stable. Vitals are normal. Obtained x- ray of right shoulder with Mild osteoarthritic changes at the left glenohumeral and acromioclavicular joints with mild spurring along superior aspect of the distal clavicle. Given history, exam, and work-up, there is low suspicion for fracture or deep tissue infection. No midline spinal tenderness on exam for signs of trauma. Patient instructed of symptoms being a self-limiting. Start analgesics. They have been given strict return her precautions for delayed possible symptoms. Patient discharged with prompt follow-up with primary care physician. Critical care attestation.: If time is entered above; I have spent that time in minutes in the direct care of this critically ill patient, excluding procedure time. ED Disposition Clinical Impression: Osteoarthritis Qualifiers: Osteoarthritis location: shoulder Osteoarthritis type: primary Laterality: left Qualified Code(s): M19.012 - Primary osteoarthritis, left shoulder Shoulder pain, left Qualifiers: Chronicity: acute Qualified Code(s): M25.512 - Pain in left shoulder Disposition: 01 HOME / SELF CARE / HOMELESS Is pt being admited?: No Condition: Stable Instructions: Osteoarthritis, How to Use Cold Therapy Prescriptions: Ibuprofen [Motrin 800 MG tab] 800 mg PO Q8HR PRN #20 tablet PRN Reason: Pain , Severe (7-10) Referrals: SARAH BOYCE MD [Staff Physician] - 3-5 Days [facility] [Provider Group] - 3-5 Days Forms: Work/School Release Form(ED) Time of Disposition: 12:49
--- NOTE | 2021-07-14 11:10 | XRay Report ---
LEFT SHOULDER HISTORY: Pain. COMPARISON: None. TECHNIQUE: 3 view(s) of the left shoulder obtained. FINDINGS Bones: No fracture or dislocation. Joint spaces: Mild acromioclavicular arthropathy with spurring along the superior aspect of the clavi lia. Mild glenohumeral osteoarthritic change.. Soft tissues: No significant abnormality. Additional findings: Surgical changes along the left mediastinal border. IMPRESSION: Left shoulder without evidence of acute osseous injury. Mild osteoarthritic changes at the left glenohumeral and acromioclavicular joints with mild spurring along superior aspect of the distal clavicle. Signer Name: Joe Ramos MD Signed: 07/14/2021 11:05 AM Workstation Name: [id number]
[2021-07-14 12:57] VITALS: BP 152/84
== END 2021-07-14 12:56 | disposition home or self-care (01) ==
LOC: ED 08:55
DX: M19.012 Primary osteoarthritis, left shoulder (principal); M25.512 Pain in left shoulder; I11.0 Hypertensive heart disease with heart failure; Z98.890 Other specified postprocedural states
CPT/HCPCS: 99283